=== PATIENT | female | born 1960 | race Caucasian/White ===

== ENCOUNTER 2023-07-15 08:30 | Emergency (ER) | payer MEDICAID, SELFPAY ==
[2023-07-15 08:34] VITALS: BP 175/116; PULSE 101; RESP 16; TEMP 36.2; O2SAT 97
--- NOTE | 2023-07-15 08:47 | ED_ITS ---
HPI - General Adult General Chief complaint: Sore Throat Stated complaint: Sore throat, cough, eye pain, throat pain Time Seen by Provider: 07/15/23 08:31 History of Present Illness HPI narrative: Patient is a 62-year-old female who has had eye irritation, swelling of the right eyelid, sore throat, cough that is been productive of a greenish sputum over the last 3-4 days. She has not had a history of emphysema or smoking. She does have hypertension and diabetes. She takes metformin and Victoza. She is reporting that she is taking all her medications. Her blood pressure is little elevated today. She is not short of breath, does not have chest pain, does have leg swelling or edema. No rigors or chills she has reported that she has had some sweating at times. Related Data Home Medications ?Medication ?Instructions ?Recorded ?Confirmed gabapentin 300 mg capsule mg PO 07/15/23 liraglutide 0.6 mg/0.1 mL (18 mg/3 1.8 mg subcut DAILY 07/15/23 07/15/23 mL) subcutaneous pen injector (Victoza 3-Joseph) lisinopril 40 mg tablet 40 mg PO DAILY 07/15/23 07/15/23 metformin 500 mg tablet 1,000 mg PO BID 07/15/23 07/15/23 simvastatin 20 mg tablet 20 mg PO QPM 07/15/23 07/15/23 Allergies Allergy/AdvReac Type Severity Reaction Status Date / Time No Known Drug Allergies Allergy Verified 07/15/23 08:40 Review of Systems Status of ROS: Reports: 6 or more systems reviewed and unremarkable except as noted in History and below PFSH PFS Social History Smoking Status: Never smoker How often do you have a drink containing alcohol: never How often do you have six or more drinks on one occasion: Never AUDIT-C Alcohol total score: 0 Non-prescribed substance use: denies use Exam Narrative: Exam Narrative: Objective: Patient's blood pressure is elevated O2 sats 97% on room air she is afebrile Alert or x3 no distress HEENT shows upper right lid swelling, conjunctiva will mattering medially bilaterally and some more redness of the right conjunctiva and inner lower lid on the right Throat is clear Neck is supple Chest is clear no rales or wheezing Heart rhythm regular heart murmur Abdomen benign soft Extremities are no edema , neurologic patient is ambulatory Const: Vital Signs, click to edit/add: Vital Signs - 24 hr 07/15/23 08:34 07/15/23 09:12 07/15/23 09:15 Temperature 97.2 F L Pulse Rate [Pulse Oximeter] 101 H 92 Respiratory Rate 16 Blood Pressure [Ri ght Upper Arm] 175/116 H 180/105 H Pulse Oximetry 97 95 Oxygen Delivery Me thod Room Air Room Air 07/15/23 09:44 Temperature Pulse Rate [Pulse Oximeter] 90 Respiratory Rate 16 Blood Pressure [Ri ght Upper Arm] Pulse Oximetry 96 Oxygen Delivery Me thod Room Air Course Vital Signs Vital signs: Initial Vital Signs Temperature 97.2 F L 07/15/23 08:34 Temperature Source Temporal Artery Scan 07/15/23 08:34 Pulse Rate 101 H 07/15/23 08:34 Respiratory Rate 16 07/15/23 08:34 Blood Pressure 175/116 H 07/15/23 08:34 Blood Pressure Mean 135 H 07/15/23 08:34 Blood Pressure Position Sitting 07/15/23 08:34 Pulse Oximetry 97 07/15/23 08:34 Oxygen Delivery Method Room Air 07/15/23 08:34 Vital Signs Temperature 97.2 F L 07/15/23 08:34 Pulse Rate 101 H 07/15/23 08:34 Respiratory Rate 16 07/15/23 08:34 Blood Pressure 175/116 H 07/15/23 08:34 Pulse Oximetry 97 07/15/23 08:34 Oxygen Delivery Method Room Air 07/15/23 08:34 Temperature 97.2 F L 07/15/23 08:34 Pulse Rate 90 07/15/23 09:44 Respiratory Rate 16 07/15/23 09:44 Blood Pressure 180/105 H 07/15/23 09:15 Pulse Oximetry 96 07/15/23 09:44 Oxygen Delivery Method Room Air 07/15/23 09:44 Medications Administered Medications: Discontinued Medications Generic Name Dose Route Start Last Admin Trade Name Freq PRN Reason Stop Dose Admin Ceftriaxone Sodium 1 gm 07/15/23 08:42 07/15/23 08:54 Ceftriaxone 1 Gm Vial IM 07/15/23 08:43 1 gm ONCE ONE Administration Lidocaine HCl 2.1 ml 07/15/23 08:42 06/08/24 08:55 Lidocaine 1% 5 Ml (Pf) 5 Ml Vial IM 2.1 ml DIRECTED PRN Administration Pain Metoprolol Succinate 25 mg 07/16/23 09:00 07/15/23 09:31 Metoprolol Succinate (Xl) 25 Mg Tab PO 25 mg DAILY KAYLA Administration Prednisone 50 mg 07/15/23 09:00 07/15/23 08:55 Prednisone 20 Mg Tablet PO 07/15/23 09:01 50 mg ONCE ONE Administration Medical Decision Making MDM Narrative Medical decision making narrative: [age] year white female with history of hypertension and diabetes, presents the productive cough, conjunctivitis. The Coumadin treat her with Rocephin 1 g IM, will also give her Zithromax for home, will give her prednisone 50 mg now and have her take Benadryl 25 mg t.i.d. over the next 3-5 days. Warm washcloth the eye as needed, follow-up with primary care in 3 days. The Zithromax will be dispensed through [facility]. Return to the ED if problems or concerns or failure to improve or worsening. Will recheck blood pressure prior to discharge. Patient did present with some hives on her legs and arms and these have not changed, she has no breathing difficulty. She did get prednisone. I think it be reasonable to allow her to go home at this point her blood pressure recheck was 180/105 she was given 25 of metoprolol to make sure that that stays lower while she is ill. Should continue her blood pressure medicine at home and recheck with regular doctor the next 2-3 days, we certainly return to ER for any difficulty breathing mouth swelling tongue swelling etc.. Discharge Plan Discharge Clinical Impression: Conjunctivitis, Acute cough, Hypertension Patient Disposition: Home, Self-Care Condition: Stable Additional Instructions: Light activity, fluids, continue home medications, will add Zithromax to her medications. Would recommend you take Benadryl 25 mg 3 times a day for the next few days as well, and recheck with regular doctor in 3-4 days, watch her blood sugar carefully, and you need to get your blood pressure recheck as well. Zithromax from [facility]. Activity Level: Light activity Discharge Diet: Diabetic Prescriptions: No Action metformin 500 mg tablet 1,000 mg PO BID simvastatin 20 mg tablet 20 mg PO QPM gabapentin 300 mg capsule PO lisinopril 40 mg tablet 40 mg PO DAILY Victoza 3-Joseph 0.6 mg/0.1 mL (18 mg/3 mL) pen injector 1.8 mg subcut DAILY Stand Alone Forms: MyHealth Info Instructions
[2023-07-15] MEDS: cefTRIAXone 1 GM VIAL IM (08:54)
[2023-07-15] MEDS: predniSONE 20 MG TABLET 50 MG PO (08:55)
[2023-07-15] MEDS: LIDOCAINE 1% 5 ml (pf) 5 ML VIAL 2.1 ML IM (08:55)
[2023-07-15 09:12] VITALS: PULSE 92; O2SAT 95
[2023-07-15 09:15] VITALS: BP 180/105
[2023-07-15] MEDS: METOPROLOL SUCCINATE (XL) 25 MG TAB PO (09:31)
[2023-07-15 09:44] VITALS: PULSE 90; RESP 16; O2SAT 96
== END 2023-07-15 09:45 | disposition home or self-care (01) ==
LOC: ED 08:57
PROVIDERS: Emergency Provider Family Medicine
DX: H10.9 Unspecified conjunctivitis (principal); R05.1 Acute cough; I10 Essential (primary) hypertension
CPT/HCPCS: 96372; 99284; A9270; J0696; J7512